=== PATIENT | female | born 1995 ===

== ENCOUNTER 2017-12-10 16:37 | Inpatient (IN) | payer BC, OTHER ==
[~2017-12-10] VITALS: Ht 149.9 cm; Wt 45.4 kg
[2017-12-10 19:30] VITALS: BP 106/68
--- NOTE | 2017-12-10 19:30 | NUR ---
Pre-admission Pre-admission assessment performed in the intake department of [facility]. Pt is A&O and ambulatory with a steady gait, HR . She appears mildly intoxicated and answers questions appropriately. She is noted with pinpoint pupils. Vital signs are B/P 106/68, HR 79, RR 16, O2 sat 97%, T 98.1, pain 0/10. Pt reports that she has been using heroin 0.5grams per day and occasionally a Roxicodone tab over the past 2 weeks. Last used heroin 2 hours ago and last used Roxicodone yesterday. Pt is stable and [facility].
[2017-12-10 20:00] VITALS: BP 106/68
[2017-12-10 20:10] LABS: *AMPHETAMINE, URINE NEGATIVE (NEGATIVE); *BARBITURATE, URINE NEGATIVE (NEGATIVE); *CANNABINOID, URINE NEGATIVE (NEGATIVE); *COCCAINE, URINE NEGATIVE (NEGATIVE); *OPIATE, URINE POSITIVE (NEGATIVE); *PHENCYCLIDINE SCREEN,URINE NEGATIVE (NEGATIVE)
[2017-12-10] MEDS ORDERED: HYDROXYZINE PAMOATE 25 MG CAPSULE PO PRN (20:30)
[2017-12-10] MEDS ORDERED: MAG HYDROX/AL HYDROX/SIMETH 30 ML LIQUID UDC PO PRN (20:30)
[2017-12-10] MEDS ORDERED: ONDANSETRON 4 MG/2 ML VIAL IM PRN (20:30)
[2017-12-10] MEDS ORDERED: LORAZEPAM 1 MG TABLET PO PRN (20:30)
[2017-12-10] MEDS ORDERED: CLONIDINE HCL 0.1 MG TABLET PO PRN (20:30)
[2017-12-10] MEDS ORDERED: LOPERAMIDE HCL 2 MG CAPSULE PO PRN ×2 (20:30)
[2017-12-10] MEDS ORDERED: MAGNESIUM HYDROXIDE 30 ML LIQUID UDC PO PRN (20:30)
[2017-12-10] MEDS ORDERED: ACETAMINOPHEN 325 MG TABLET PO PRN (20:30)
[2017-12-10] MEDS ORDERED: BUPRENORPHINE HCL 2 MG TAB.SUBL SL PRN (20:30)
[2017-12-10] MEDS ORDERED: IBUPROFEN 400 MG TABLET PO PRN (20:30)
[2017-12-10 20:34] LABS: *URINE HCG, QUAL NEGATIVE (NEGATIVE)
[2017-12-10] MEDS ORDERED: DIVA-78 PO (20:38)
[2017-12-10] MEDS ORDERED: GABA-534 PO (20:38)
[2017-12-10 20:40] LABS: BASOPHILS % (AUTO) 0.5 % (0.0-2.0); EOSINOPHILS # (AUTO) 0.4 K/uL (0.0-0.7); EOSINOPHILS % (AUTO) 6.2 % (0.0-7.0); HEMATOCRIT 40.1 % (31.2-41.9); HEMOGLOBIN 13.5 g/dL (10.9-14.3); LYMPHOCYTES % (AUTO) 29.9 % (20.5-51.5); MEAN CORPUSCULAR HEMOGLOBIN 30.3 uug (24.7-32.8); MEAN CORPUSCULAR HGB CONC 34 g/dL (32.3-35.6); MONOCYTES # (AUTO) 0.4 K/uL (2.0-10.0); MONOCYTES % (AUTO) 6.6 % (0.0-11.0); NEUTROPHILS # (AUTO) 3.8 K/uL (1.8-8.9); NEUTROPHILS % (AUTO) 56.8 % (38.5-71.5); PLATELET COUNT (AUTO) 247 K/uL (179-408); RED BLOOD CELL COUNT(AUTO) 4.45 MIL/uL (3.63-4.92); WHITE BLOOD COUNT (AUTO) 6.6 K/uL (3.8-11.8)
[2017-12-10 20:44] LABS: ETHANOL < 3 MG/DL (0-0)
[2017-12-10 20:48] LABS: ALANINE AMINOTRANSFERASE 40 U/L (14-59); ALKALINE PHOSPHATASE 45 U/L (50-136); ASPARTATE AMINOTRANSFERASE 22 U/L (15-37); BILIRUBIN,TOTAL 0.4 mg/dL (0.2-1.0); CARBON DIOXIDE 25 mmol/L (21-32); CHLORIDE 101 mmol/L (98-107); CREATININE 0.7 mg/dL (0.6-1.3); GLUCOSE 75 mg/dL (74-106); POTASSIUM 3.5 mmol/L (3.5-5.1); TOTAL PROTEIN, SERUM 8.4 g/dL (6.4-8.2); UREA NITROGEN, BLOOD 8 mg/dL (7-18)
[2017-12-10 20:57] LABS: THYROID STIMULATING HORMONE 1.453 mIU/mL (0.358-3.740)
--- NOTE | 2017-12-10 21:30 | NUR ---
Admission Pt is a 22 yo female who arrived on the [facility] unit at 1952 on 12/10/17 for medically supervised opiate withdrawal. She admits to smoking heroin and occasionally taking Roxicodone tabs. She is A&O and ambulatory with a steady gait. The appears mildly intoxicated and answers questions appropriately with clear speech. She is noted with pinpoint pupils during admission assessment. Her vital signs in intake were: B/P 106/68, HR 79, RR 16, O2 sat 97%, T 98.1, pain 0/10. Pt is 411 and weighs 100lb. PMH includes Tachycardia, Chlamydia, Appendectomy, Bipolar I, and anxiety. Lung sounds clear, brisk capillary refill, PERRLA, bowel sounds present, abdomen soft and non-tender, skin is intact. Pt is concerned that she has a UTI and unspecified STDs. Her LMP started 12/08/17 and last BM was also 12/08/17. Pt reports h/o 5150s x5 with the last one being in 2014 due to accidental overdose. 2 of the 5150s were for suicidal ideation and one was for suicide attempt. She had another suicide attempt in 2016 where she took 30 Trazodone tabs. Pt was not placed on a 5150 at this time. She denies current SI/HI. She has a h/o BZD abuse and experienced blackouts during that time. She denies seizure history. History of Use 1) Heroin 0.5grams/day via oral inhalation x 2 weeks. She first used heroin 5 years ago. Last used 0.5 grams at 1730 today. 2) Roxicodone 5 tabs of 30mg via oral inhalation over the past 2 weeks. Last used 1/2 tab on 12/09/17. She first used Roxicodone 3 years ago. Treatment History 1) [facility] 2015 for Heroin withdrawal. Pt was also using Methamphetamine. 2) A detox facility in [place] in 2015 for Heroin withdrawal 3) [facility] 2014 for BZD withdrawal. 4) [facility] 2012 for Heroin withdrawal. Pt was also using Methamphetamine. 5) [facility] 2012 Prior to relapsing, the patient had 16 months of sobriety. She is planning on attending a 30 day residential treatment program upon discharge from [facility]. She currently lives in a sober living. She decided to come to treatment today because I couldnt stop and I know how I get. I need to physically be away from it. Symptoms when she does not use include fever, legs are on fire, constipated, like I have the flu, everything hurts even things I didnt know could hurt. She explains that in the past her substance abuse has caused me to lose my job, lose my boyfriend, and disappoint my family. She and her boyfriend were sober together. Her most recent relapse happened when her boyfriend drank alcohol and used heroin the next day. When she went to his house she states I wasnt strong enough to not do it. Pt is expressing feelings of guilt and remorse. She feels it is necessary to go to residential treatment after so that she can be in a controlled environment. Her family is supportive although there is a h/o ETOH abuse with her father . COWS not assessed on admission as pt is mildly intoxicated. She is not experiencing s/s of withdrawal. She does not have a primary care physician. Her Psychiatrist is Dr. Vishal Young in [facility]. Dr. Simental aware of pts admission with orders receive. She was educated regarding plan of care, use of the call light, and all questions answered. Safety measures in place.
[2017-12-10 21:45] LABS: *BILIRUBIN,URIN 1+ (NEGATIVE); *BLOOD, URINE 2+ (NEGATIVE); *CLARITY,URINE CLEAR (CLEAR); *COLOR,URINE YELLOW (YELLOW); *KETONES,URINE 3+ (NEGATIVE); *PROTEIN,URINE NEGATIVE (NEGATIVE); *UROBILINOGEN,URINE 0.2 E.U./dl (NORMAL); LEUKOCYTE ESTERASE ,URINE NEGATIVE (NEGATIVE); NITRITE, URINE NEGATIVE (NEGATIVE); PH,URINE 6.5 (5.0-8.0); UGLUCOSE NEGATIVE (NEGATIVE)
[2017-12-10 21:46] LABS: BACTERIA,URINE FEW /HPF (NONE SEEN); SQUAMOUS EPITHELIAL CELL,UR FEW /HPF (NONE SEEN)
[2017-12-10] MEDS: diphenhydrAMINE 50 MG CAPSULE PO PRN (21:46)
--- NOTE | 2017-12-10 21:47 | NUR ---
PRN Benadryl Pt reports inability to sleep. PRN Benadryl administered.
--- NOTE | 2017-12-10 22:15 | NUR ---
Resumed care Patient was endorsed by FRANCISCA Guerra. Patient in the room. No c/o at this time. Safety measures in place. Call light in reach. Will continue to monitor.
[2017-12-11] VITALS: BP 95/71
--- NOTE | 2017-12-11 | NUR ---
COWS deferred Patient lying in bed with eyes closed. Respiration even and unlabored. Will continue to monitor
[2017-12-11 04:00] VITALS: BP 107/75
--- NOTE | 2017-12-11 04:00 | NUR ---
COWS deferred Patient lying in bed with eyes closed. Respiration even and unlabored. Will continue to monitor
--- NOTE | 2017-12-11 05:30 | NUR ---
COWS assessment Patient awake. Patient presents with anxiety, restless and intermittent sweating. COWS 5.
--- NOTE | 2017-12-11 07:20 | NUR ---
End of shift note Patient slept 6 hours. Fluid intake 500 ml. Voided x2. No BM. Patient was given PRN Benadryl. Last COWS 5. Safety measures in place. Call light within reach. Will continue to monitor.
--- NOTE | 2017-12-11 07:45 | NUR ---
START OF SHIFT Pt is a 22 yr old female, admitted on 12/10/17 for Opiate withdrawal and is on Subutex PRN for s/s of w/d. Received report from lens marker nurse. Pt received Benadryl PRN for sleep. Medication was effective and slept for 6 hrs. Last COWS score was 5. Pt remains in bed sleeping with respirations even and unlabored. skin is intact, warm and moist to touch. Pt's room is noted disheveled with dirty clothes on the floor and empty bottles of water on the floor. Safety precautions observed. Call light is within reach. Will continue to monitor.
[2017-12-11 08:11] VITALS: BP 86/54
[2017-12-11] MEDS ORDERED: TUBERCULIN,PURIF.PROT.DERIV. 5 TU/0.1 ML TEST ID ONE (09:00)
--- NOTE | 2017-12-11 09:00 | NUR ---
COWS ASSESSMENT Pt is c/o anxiety and muscle aches on BLE 07/11. Pt was observed yawning x1. COWS score was 5. Pt was encouraged to attend group therapy during the day. Will continue to monitor.
[2017-12-11] MEDS: DOCUSATE SODIUM 250 MG CAPSULE PO SCH (09:19)
[2017-12-11] MEDS: MULTIVITAMINS,THERAPEUTIC TABLET PO SCH (09:19)
[2017-12-11] MEDS ORDERED: 5 DAY TAPER BUPRENORPHINE -SERENITY PROTOCOL SL PRN (11:45)
[2017-12-11 12:00] VITALS: BP 97/56
[2017-12-11] MEDS: BUPRENORPHINE HCL 2 MG TAB.SUBL SL SCH ×3 (13:00→21:48)
[2017-12-11] MEDS: METHOCARBAMOL 750 MG TABLET PO PRN (13:25)
--- NOTE | 2017-12-11 13:32 | NUR ---
MEDICATION HELD/PRN GIVEN Subutex 4MG SL as scheduled at 1300 due to COWS score was <8. COWS score was 6 for anxiety, sweats and muscle aches. Pt was noted resting in bed. Skin is clammy to touch. BP is 97/56. Pt was given Robaxin 750mg PO PRN and Motrin 400mg PO PRN was given for muscle aches. Encouraged increase fluid intake. Will continue to monitor.
--- NOTE | 2017-12-11 14:32 | NUR ---
PRN RE-ASSESSMENT Motrin PRN and Robaxin PRN was effective. Pt denies any pain at this time. Encouraged increase fluid intake. Will continue to monitor.
--- NOTE | 2017-12-11 14:39 | NUR ---
Therapist prompted client to attend group therapy.
[2017-12-11 16:00] VITALS: BP 102/54
[2017-12-11] MEDS: GABAPENTIN 300 MG CAPSULE PO SCH (17:55)
--- NOTE | 2017-12-11 19:07 | NUR ---
END OF SHIFT Pt is a 22 yr old female, AA&Ox4. Pt was admitted on 12/10/17 for Opiate withdrawal and started a 5 day Subutex taper as ordered. Subutex 4mg SL as scheduled at 1300 was held due to low COWS score of 6. Pt was c/o muscle aches and sweats. Pt was given Robaxin 750mg PO PRN and Motrin 400mg PO PRN as ordered. Pts appearance is disheveled and room is noted with dirty clothes on the floor and multiple food wrappers on bedside table. Last COWS score was 8 at 1600. Pt was encouraged to attending group therapy and to drink plenty of fluids for hydration. Safety precautions observed. Endorsed to maintenance supervisor 2nd shift nurse to collect urine for UA.
--- NOTE | 2017-12-11 19:30 | NUR ---
Start of shift Patient is a 22 year old female admitted on 12/10/[address] [facility] for medically supervised Opiate withdrawal. Patient is on a 5 day Subutex taper. Patients last COWS was 8. Per endorsement patient had PRN Robaxin and Motrin. Patient has UA pending and patient will notify when she needs to go void. Upon rounds was noted in room with tv off, reviewed 2100 medication and she requested PRN Benadryl for sleep. Patient is on Fall precautions. Respirations are even and unlabored. Safety measures in place, bed locked in low position, side rails up x2, and call light within reach. Will continue to monitor.
[2017-12-11 20:00] VITALS: BP 135/86
--- NOTE | 2017-12-11 20:00 | NUR ---
COWS Assessment Patient is presenting with s/s of withdrawal as follow: anxiety, restless, body aches, and chills. Patients COWS is 8. Respirations are even and unlabored. Safety measures in place. Will continue to monitor.
[2017-12-11] MEDS ORDERED: DIVALPROEX ER 500 MG TAB.SR.24H PO SCH (21:00)
[2017-12-11 21:37] LABS: *BILIRUBIN,URIN NEGATIVE (NEGATIVE); *BLOOD, URINE NEGATIVE (NEGATIVE); *CLARITY,URINE SLIGHTLY CLOUDY (CLEAR); *COLOR,URINE YELLOW (YELLOW); *KETONES,URINE TRACE (NEGATIVE); *PROTEIN,URINE NEGATIVE (NEGATIVE); *UROBILINOGEN,URINE 0.2 E.U./dl (NORMAL); NITRITE, URINE NEGATIVE (NEGATIVE); UGLUCOSE NEGATIVE (NEGATIVE)
[2017-12-11] MEDS: DIVALPROEX ER 250 MG TAB.SR.24H PO SCH (21:48)
[2017-12-11] MEDS: diphenhydrAMINE 50 MG CAPSULE PO PRN (21:48)
[2017-12-11 21:55] LABS: LEUKOCYTE ESTERASE ,URINE TRACE (NEGATIVE)
[2017-12-11 21:58] LABS: MUCUS,URINE MANY /LPF (0-FEW); SQUAMOUS EPITHELIAL CELL,UR FEW /HPF (NONE SEEN); URINE AMORPHOUS PHOSPHATES FEW /HPF
--- NOTE | 2017-12-11 22:00 | NUR ---
PRN Benadryl, Milk of Magnesium, Zofran Patient is presenting with difficulty sleeping, constipation, and nausea. Administered PRN Benadryl, Milk of Magnesium, Zofran and patient tolerated well. Respirations are even and unlabored. Safety measures in place. Will continue to monitor.
[2017-12-11] MEDS: ONDANSETRON ODT 4 MG TAB.RAPDIS SL PRN (22:32)
--- NOTE | 2017-12-11 23:00 | NUR ---
PRN Benadryl, Milk of Magnesium, Zofran Reassessment Patient is noted in bed lying with eyes closed, breathing even and unlabored. Medication noted to be effect, patient is not complaining of nausea. Constipation will be monitor. Safety measures in place. Will continue to monitor.
[2017-12-12] VITALS: BP 118/79
--- NOTE | 2017-12-12 | NUR ---
COWS Assessment Patient is presenting with s/s of withdrawal as follow: anxiety, body aches, and chills. Patients COWS is 9. Respirations are even and unlabored. Safety measures in place. Will continue to monitor.
[2017-12-12 04:00] VITALS: BP 102/69
--- NOTE | 2017-12-12 04:00 | NUR ---
COWS Deferred Patient noted in bed lying with eyes closed, breathing even and unlabored. Per protocol COWS is to be assess while patient is awake. Safety measures in place. Will continue to monitor.
[2017-12-12 04:09] LABS: HEPATITIS B SURFACE AG Negative (Negative)
--- NOTE | 2017-12-12 07:30 | NUR ---
End of shift Patient is a 22 year old female admitted on 12/10/2017 here at [facility] for medically supervised Opiate withdrawal. Patient is on a 5 day Subutex taper. Patients last COWS was 9. Patient had PRN Benadryl, Milk of Magnesium, and Zofran. Patient is on Fall precautions. Patient slept for 8 hours and had a total intake of 855 ml. Patient voided x2 and had no bowel movements during this shift. Respirations are even and unlabored. Safety measures in place, bed locked in low position, side rails up x2, and call light within reach. Will endorse to day shift.
--- NOTE | 2017-12-12 07:47 | NUR ---
BEGINNING OF SHIFT Patient endorsement report received from material handler 2nd shift nurse, all pertinent information was discussed. Per material handler 2nd shift patient received PRN: Benadryl, MOM, and Zofran. Patient with last COW score of: 9. Slept for 8 hours. Patient with admitting Dx: opiate withdrawal, scheduled to begin day 2 of 5 day Subutex taper. Safety measures are in place. Call light with in reach, received patient awake, alert and oriented x4, educated regarding plan of care for the day and medication regimen with good verbal understanding. Safety measures are in place. Will continue to monitor.
[2017-12-12 08:13] VITALS: BP 157/75
[2017-12-12] MEDS: GABAPENTIN 300 MG CAPSULE PO SCH ×3 (08:24→16:27)
[2017-12-12] MEDS: MULTIVITAMINS,THERAPEUTIC TABLET PO SCH (08:24)
[2017-12-12] MEDS: DOCUSATE SODIUM 250 MG CAPSULE PO SCH (08:24)
[2017-12-12] MEDS: BUPRENORPHINE HCL 2 MG TAB.SUBL SL SCH ×3 (08:25→23:15)
--- NOTE | 2017-12-12 08:42 | NUR ---
COW ASSESSMENT: patient was noted exhibiting the following s/sx of withdrawal: flushed, chills, difficulty sitting still, enlarged pupils, arthralgias, myalgias, abdominal cramps, gooseflesh, increase anxiety, agitation, and generalized discomfort, patient with current COW score of: 13. will continue to monitor.
[2017-12-12 13:10] VITALS: BP 104/77
--- NOTE | 2017-12-12 13:20 | NUR ---
Therapist prompted client to attend all group therapy sessions.
--- NOTE | 2017-12-12 13:30 | NUR ---
COW ASSESSMENT: Patient was noted exhibiting the following s/sx of withdrawal: chills, difficulty sitting still, enlarged pupils, arthralgias, myalgias, abdominal cramps, gooseflesh, increase anxiety, agitation, elevated heart rate, and generalized discomfort, patient with current COW score of: 13. will continue to monitor.
[2017-12-12] MEDS: ONDANSETRON ODT 4 MG TAB.RAPDIS SL PRN (16:28)
--- NOTE | 2017-12-12 16:28 | NUR ---
PRN ZOFRAN Patient c/o increase nausea, no episodes of vomiting noted. Patient administered Zofran as ordered, will monitor effectiveness of medication.
--- NOTE | 2017-12-12 16:45 | NUR ---
COW ASSESSMENT: patient was noted exhibiting the following s/sx of withdrawal: flushed, chills, difficulty sitting still, enlarged pupils, arthralgias, myalgias, abdominal cramps, gooseflesh, increase anxiety, agitation,nausea, and elevated heart rate, and generalized discomfort, patient with current COW score of: 13. will continue to monitor. Safety measures in place.
[2017-12-12 16:55] VITALS: BP 100/64
--- NOTE | 2017-12-12 16:58 | NUR ---
ZOFRAN REASSESSMENT Patient reports medication effective, denies any nausea, will continue to monitor.
--- NOTE | 2017-12-12 18:58 | NUR ---
END OF SHIFT Patient alert and oriented x4, continues under close observation, patient with admitting Dx: opiate withdrawal. Patient continues with ongoing 5 day Subutex taper as ordered. Patient noted with avoidant eye contact, soft speech, racing thoughts, with sad/worried facial expression. Flat affect, and anxious/depressed mood. Noted fidgety, withdrawn, and guarded. Appears disheveled and unkept, encouraged patient maintenance of personal space and self grooming. During shift MD with new orders to repeat urinalysis. Patient reports mild discomfort upon voiding, no hematuria noted. Encouraged patient to increase PO fluid intake as tolerated. Patient afebrile during shift. Continues under close observation, patient was noted exhibiting the following s/sx of withdrawal: flushed, chills, difficulty sitting still, enlarged pupils, arthralgias, myalgias, abdominal cramps, gooseflesh, increase anxiety, agitation, and elevated heart rate, and nausea, patient with last COW score of: 13. Encouraged to attend group therapies/sessions to learn new coping skills to prevent relapse. Denies SI/HI. Safety measures are in place. Call light kept with in reach, safety measures are in place. Patient endorsed to evening or night nurse supervisor nurse, all pertinent information was discussed.
--- NOTE | 2017-12-12 19:30 | NUR ---
Start of shift Patient is a 22 year old female admitted on 12/10/2017 here at [facility] for medically supervised Opiate withdrawal. Patient is on a 5 day Subutex taper. Patients last COWS was 13. Patient is on Fall precautions. Per endorsement patient had PRN Zofran. Patient has not had an bowel movement during day shift, a onetime order of magnesium citrate was ordered for 1999. Upon rounds patient was noted in room, she seems depressed and worried. Respirations are even and unlabored. Safety measures in place, bed locked in low position, side rails up x2, and call light within reach. Will continue to monitor.
[2017-12-12 20:00] VITALS: BP 100/61
[2017-12-12] MEDS ORDERED: MAGNESIUM CITRATE 296 ML BOTTLE PO ONE (20:00)
--- NOTE | 2017-12-12 20:00 | NUR ---
COWS Assessment Patient is presenting with s/s and of withdrawal as follow: mild body aches, anxiety, nausea, stuffy nose and chills. Patients COWS is 11. Respirations are even and unlabored. Safety measures in place, and will continue to monitor.
--- NOTE | 2017-12-12 20:34 | NUR ---
One time dose Citrate of Magnesium 296 ml Patient was given a onetime dose of Citrate of Magnesium 296 ml, medication was entered manually because barcode was unable to scan, witnessed by charge nurse. Patient tolerated medication well, and will continue to monitor. Respirations are even to unlabored.
[2017-12-12] MEDS: DIVALPROEX ER 250 MG TAB.SR.24H PO SCH (23:13)
--- NOTE | 2017-12-12 23:13 | NUR ---
Late Medication administration/Incident report Patient was asking to take medication late because she was afraid it would induced nausea. Schedule Depakote and Subutex was administered at 2313. Patient was monitored during Subutex administration and when asked a minute after administration, medication was not dissolve and not visible. One pill was being cheeked in between the teeth and it was addressed to patient and she went ahead and put the pill SL, patient was sitting at the edge of the bed, patient immediately got up and said "I need to use the restroom"; and went inside the restroom and closed the door. I opened the door and inform patient she cannot do that and I had to monitor her, patient stated "I need to use the restroom". I left the restroom door open and monitor patient closely and monitor for cheeking. Patient was noted with toilet paper wrapped around her hand which she flushed down the toilet. Patient was acting very suspicious. Charge nurse and WATCH MANUFACTURING SUPERVISOR fish bait processing supervisor were notified. Room search and body search conducted and nothing was found and patient was educated regarding proper medication administration.
[2017-12-13] VITALS: BP 105/66
[2017-12-13 01:07] LABS: *GC NAA Negative (Negative); *TRIC.VAG. NAA Negative (Negative)
[2017-12-13 04:00] VITALS: BP 108/63
--- NOTE | 2017-12-13 07:26 | NUR ---
End of shift Patient is a 22 year old female admitted on 12/10/2017 here at [facility] for medically supervised Opiate withdrawal. Patient is on a 5 day Subutex taper. Patients last COWS was 11. Patient is on Fall precautions. Patient did not have any PRN medications during this shift. Patient slept for 9 hours and had a total intake of 740 ml. Patient voided x3 and had not bowel movements. During night medications patient was suspected of cheeking medication and will endorse to day shift. Respirations are even and unlabored. Safety measures in place, bed locked in low position, side rails up x2, and call light within reach. Will endorse to day shift.
--- NOTE | 2017-12-13 07:37 | NUR ---
BEGINNING OF SHIFT Received patient awake, alert and oriented x4, educated regarding plan of care for the day and medication regimen with good verbal understanding. Patient endorsement report received from shift stacker nurse, all pertinent information was discussed. Per shift stacker patient received no PRNs, received one time of magnesium citrate, continues under observation. Patient with last COW score of: 11. Slept for 9 hours. Scheduled to begin day 3 of 5 day Subutex taper. Safety measures are in place. Call light with in reach, Safety measures are in place. Will continue to monitor.
[2017-12-13 08:16] VITALS: BP 92/68
--- NOTE | 2017-12-13 08:45 | NUR ---
COW ASSESSMENT Exhibiting the following s/sx of withdrawal: flushed, difficulty sitting still, enlarged pupils, moist eyes, arthralgias, myalgias, abdominal cramps, yawning, gooseflesh, increase anxiety, agitation.Patient with current COW score of: 10.
[2017-12-13] MEDS: MULTIVITAMINS,THERAPEUTIC TABLET PO SCH (08:47)
[2017-12-13] MEDS: DOCUSATE SODIUM 250 MG CAPSULE PO SCH (08:47)
[2017-12-13] MEDS: GABAPENTIN 300 MG CAPSULE PO SCH ×3 (08:47→16:49)
[2017-12-13] MEDS ORDERED: BUPRENORPHINE HCL 2 MG TAB.SUBL SL SCH (09:00)
--- NOTE | 2017-12-13 10:17 | NUR ---
Therapist prompted client to attend group therapy.
--- NOTE | 2017-12-13 13:10 | NUR ---
COW ASSESSMENT Presenting with the following s/sx of withdrawal: chills, difficulty sitting still, enlarged pupils, moist eyes, arthralgias, myalgias, abdominal cramps, yawning, gooseflesh, increase anxiety, agitation, and elevated heart rate. Patient with current COW score of: 10.
[2017-12-13 13:14] VITALS: BP 135/78
[2017-12-13] MEDS: BUPRENORPHINE HCL 2 MG TAB.SUBL SL SCH ×2 (14:24→20:46)
[2017-12-13 16:56] VITALS: BP 94/62
--- NOTE | 2017-12-13 17:10 | NUR ---
COW ASSESSMENT Patient noted with: flushed face, chills, difficulty sitting still, enlarged pupils, moist eyes, arthralgias, myalgias, abdominal cramps, yawning, gooseflesh, increase anxiety, agitation, and elevated heart rate. Patient with last COW score of: 10.
--- NOTE | 2017-12-13 19:01 | NUR ---
END OF SHIFT Continues under close observation, patient with ongoing Subutex taper as ordered, no episodes of behavior or trying to cheek medication were noted during shift. was noted exhibiting the following s/sx of withdrawal: flushed, chills, difficulty sitting still, enlarged pupils, moist eyes, arthralgias, myalgias, abdominal cramps, yawning, gooseflesh, increase anxiety, agitation, and elevated heart rate. Patient with last COW score of: 10. Received no PRN medications during shift nurse manager Presented with: avoidant eye contact and soft speech. Has a sad/worried facial expression. Flat affect, and anxious/depressed mood. Noted withdrawn, and guarded, Noted isolative, preferred to stay in room despite much encouragement, patient was encouraged to socialize with peers and attend group therapies/sessions to learn new coping skills to prevent relapse. Appears disheveled and unkempt, has clothes thrown on floor and empty candy wrappers/water bottles in room, encouraged patient maintenance of personal space and self grooming. Offered linen change and refused. During shift no hematuria, no c/o dysuria were noted. Encouraged patient to increase PO fluid intake as tolerated. Patient afebrile during shift. Encouraged to attend group therapies/sessions to learn new coping skills to prevent relapse. Denies SI/HI. Safety measures are in place. Call light kept with in reach, safety measures are in place. Patient endorsed to shift nurse manager nurse, all pertinent information was discussed.
--- NOTE | 2017-12-13 19:48 | NUR ---
START OF SHIFT NOTE Rcvd report from outgoing nurse. Pt is a 22 y/o female A/O to person, place, time, and purpose. Pt was admitted for medically supervised withdrawal from Opiates. Pt is on day 3 of a 5 day Subutex taper. Pt has been presenting w/ anxiety, restlessness, body aches, headaches, sweats, depressed and withdrawn mood, flat affect, and guarded. No PRN medication was given to pt during the previous shift. Last COWS 10 @ 1600. Call light is within reach. Pt will continue to be monitored and needs met.
[2017-12-13 20:05] VITALS: BP 122/74
--- NOTE | 2017-12-13 20:06 | NUR ---
COWS ASSESSMENT COWS 10. . Pt has been presenting w/ anxiety, restlessness, body aches, headaches, sweats, depressed and withdrawn mood, flat affect, and guarded. V/S: T:97.6, P:97, RR:15, SPO2:100, BP:122/74.
[2017-12-13] MEDS: METHOCARBAMOL 750 MG TABLET PO PRN (20:45)
--- NOTE | 2017-12-13 20:45 | NUR ---
PRN ROBAXIN AND VISTARIL ADMINISTRATION Robaxin 750mg and Vistaril 25mg given for anxiety and body aches/pain. Pt states feeling anxious and 6/10 generalized body aches. Will reassess pt in 1 hr.
[2017-12-13] MEDS: DIVALPROEX ER 250 MG TAB.SR.24H PO SCH (20:46)
--- NOTE | 2017-12-13 21:45 | NUR ---
PRN ROBAXIN AND VISTARIL REASSESSMENT Pt states relief from body aches down to a 1/10 and from anxiety. Pt just finished getting ready for bed and states will try and fall asleep now.
[2017-12-13] MEDS: TRAZODONE 50 MG TABLET PO PRN (22:37)
--- NOTE | 2017-12-13 22:37 | NUR ---
PRN TRAZODONE ADMINISTRATION Trazodone 50mg given for sleep. Pt c/o insomnia. Will reassess pt in 1 hr.
--- NOTE | 2017-12-13 23:37 | NUR ---
PRN TRAZODONE REASSESSMENT Pt is in bed w/ her eyes closed. Pt's respirations are unlabored and even.
--- NOTE | 2017-12-14 04:16 | NUR ---
COWS DEFERRED. V/S REFUSED Pt is in bed w/ her eyes closed. Pt's respirations are unlabored even.
--- NOTE | 2017-12-14 07:22 | NUR ---
END OF SHIFT NOTE Endorsed pt to oncoming nurse. Pt is a 22 y/o female A/O to person, place, time, and purpose. Pt was admitted for medically supervised withdrawal from Opiates. Pt completed 3 of a 5 day Subutex taper. Pt continues presenting w/ anxiety, restlessness, body aches, headaches, sweats, depressed and withdrawn mood, flat affect, and guarded. Pt denies any S/I or H/I. PRN Robaxin 750mg for body achwes, Vistaril 25mg for anxiety, and Trazodone 50mg for sleep were given and noted effective. Pts fluid intake was 1000ml and she slept for 7hrs. Last COWS 10 @ 2000. Call light is within reach.
--- NOTE | 2017-12-14 07:39 | NUR ---
BEGINNING OF SHIFT Patient continues with ongoing Subutex taper, is scheduled to begin day 4 of 5 Subutex taper. Patient is awake, alert and oriented x4, educated regarding plan of care for the day and medication regimen with good verbal understanding. Per security shift manager patient received PRN: Robaxin, Vistaril and Trazodone. Medications were effective as per security shift manager. Patient with last COW score of: 10. Slept for 7 hours. Safety measures are in place. Call light with in reach, Safety measures are in place. Will continue to monitor.
[2017-12-14 08:15] VITALS: BP 98/63
[2017-12-14] MEDS: BUPRENORPHINE HCL 2 MG TAB.SUBL SL SCH ×3 (08:17→20:14)
[2017-12-14] MEDS: MULTIVITAMINS,THERAPEUTIC TABLET PO SCH (08:17)
[2017-12-14] MEDS: DOCUSATE SODIUM 250 MG CAPSULE PO SCH (08:17)
[2017-12-14] MEDS: GABAPENTIN 300 MG CAPSULE PO SCH ×3 (08:17→16:33)
--- NOTE | 2017-12-14 08:30 | NUR ---
COW ASSESSMENT Patient was noted exhibiting the following s/sx of withdrawal during shift: chills, difficulty sitting still, generalized discomfort, emotional volatility, enlarged pupils, mild arthralgias/myalgia, moist eyes, tremors that can be felt, yawning, irritability, increase anxiety and agitation. Patient with last COW score of: 9.
[2017-12-14] MEDS: METHOCARBAMOL 750 MG TABLET PO PRN (12:32)
--- NOTE | 2017-12-14 12:32 | NUR ---
PRN ROBAXIN Patient complained of myalgia, and muscle spasm, pain level 5/10, provided with non pharmacological interventions with no relief, administered robaxin as ordered, will monitor effectiveness of medication.
--- NOTE | 2017-12-14 13:10 | NUR ---
COW ASSESSMENT Patient was noted exhibiting the following s/sx of withdrawal during shift: chills, difficulty sitting still, generalized discomfort, emotional volatility, enlarged pupils, mild arthralgias/myalgia, moist eyes, tremors that can be felt, Elevated heart rate, irritability, increase anxiety and agitation. Patient with last COW score of: 9. Will continue to monitor.
--- NOTE | 2017-12-14 13:32 | NUR ---
ROBAXIN REASSESSMENT Patient reports medication effective, current pain level 0/10, will continue to monitor.
[2017-12-14 13:34] VITALS: BP 109/61
--- NOTE | 2017-12-14 16:30 | NUR ---
COW ASSESSMENT Continues to exhibit the following s/sx of withdrawal during shift: chills, difficulty sitting still, generalized discomfort, emotional volatility, enlarged pupils, mild arthralgias/myalgia, moist eyes, tremors that can be felt, Elevated heart rate, irritability, increase anxiety and agitation. Patient with last COW score of: 9. Will continue to monitor.
[2017-12-14 16:51] VITALS: BP 122/68
--- NOTE | 2017-12-14 17:00 | NUR ---
END OF SHIFT/ENDORSED CARE Patient continues under close observation, safety measures in place throughout shift, no behavior issues during shift, patient compliant with treatment plan and medication administration. Patient noted attending and participating in group therapies/sessions, denies SI/HI. Encouraged utilization of non pharmacological interventions as needed. Patient was noted exhibiting the following s/sx of withdrawal during shift: chills, difficulty sitting still, generalized discomfort, emotional volatility, enlarged pupils, mild arthralgias/myalgia, moist eyes, tremors that can be felt, yawning, irritability, increase anxiety and agitation. Patient with last COW score of: 9. Noted with fair appetite, encouraged increase in PO fluid intake as tolerated. Received no PRNs during shift. Patient with no c/o dysuria, or hematuria noted. Patient also noted with flat affect and depressed/anxious mood. Non pharmacological interventions provided as needed, along with calming reassurance as needed. Safety measures are in place. Patient endorsed to staff nurse, all pertinent information was discussed.
--- NOTE | 2017-12-14 17:01 | NUR ---
ENDORSEMENT Pt endorsed me. All information received. Assumed care.
--- NOTE | 2017-12-14 19:04 | NUR ---
END OF SHIFT Pt endorsed to nurse. Last cows=9@1600. All information given from assumed care.
--- NOTE | 2017-12-14 19:30 | NUR ---
Start of shift Patient is a 22 year old female admitted on 12/10/2017 here at [facility] for medically supervised Opiate withdrawal. Patient is on a 5 day Subutex taper. Patients last COWS was 9. Patient is on Fall precautions. Per endorsement patient had PRN Robaxin and patient had repeated UA exam during day shift. Upon rounds patient was noted in room. Patient understands plan of care. Patient appears withdrawn, depressed and disheveled. Respirations are even and unlabored. Safety measures in place, bed locked in low position, side rails up x2, and call light within reach. Will continue to monitor.
[2017-12-14 20:00] VITALS: BP 115/77
--- NOTE | 2017-12-14 20:00 | NUR ---
COWS Assessment Patient is presenting with s/s and of withdrawal as follow: tremors, mild body aches, anxiety, agitation, nausea, stuffy nose and chills. Patients COWS is 9. Respirations are even and unlabored. Safety measures in place, and will continue to monitor.
[2017-12-14] MEDS: DIVALPROEX ER 250 MG TAB.SR.24H PO SCH (20:14)
[2017-12-14] MEDS: TRAZODONE 50 MG TABLET PO PRN (20:14)
--- NOTE | 2017-12-14 20:14 | NUR ---
PRN Trazodone Patient is reporting difficulty falling asleep and administered PRN Trazodone. Patient tolerated medication well and will continue to monitor. Respirations are even and unlabored. Safety measures in place.
--- NOTE | 2017-12-14 21:14 | NUR ---
PRN Trazodone Reassessment Patient is noted lying in bed with eyes closed, breathing even and unlabored. Medication noted to be effective. Safety measures in place and will continue to monitor.
[2017-12-15] VITALS: BP 108/68
[2017-12-15 04:00] VITALS: BP 108/68
--- NOTE | 2017-12-15 07:04 | NUR ---
End of shift Patient is a 22 year old female admitted on 12/10/2017 here at [facility] for medically supervised Opiate withdrawal. Patient is on a 5 day Subutex taper. Patients last COWS was 9. Patient is on Fall precautions. Patient had PRN Trazodone during this shift. Patient slept for 8 hours and had a total intake of 1,597ml. Patient voided x4 and had no bowel movements during this shift. Patient took a bed bath before bed. Respirations are even and unlabored. Safety measures in place, bed locked in low position, side rails up x2, and call light within reach. Will continue to monitor.
--- NOTE | 2017-12-15 07:30 | NUR ---
START OF SHIFT Endorse rcvd from ongoing nurse, client is in bed, lying on her R side, sounds asleep, easy to arouse, RR 16 even, non-labored. PRN Trazodone 50mg PO for sleep, she slept 8 hrs. Last COWS 9 @ 1999. [place] precautions. Pending results for repeat urine culture, trace of leukocytes and increase WBC's. Pending results for urine culture for Chlamydia, Gonorrhea, and Trichomonas. Bed in lowest/locked position, side rails x 2 up. Call light within reach. Will continue to monitor.
[2017-12-15] MEDS ORDERED: BUPRENORPHINE HCL 2 MG TAB.SUBL SL SCH (09:00)
[2017-12-15 09:14] VITALS: BP 101/64
[2017-12-15] MEDS: GABAPENTIN 300 MG CAPSULE PO SCH ×3 (09:50→17:03)
[2017-12-15] MEDS: MULTIVITAMINS,THERAPEUTIC TABLET PO SCH (09:50)
[2017-12-15] MEDS: DOCUSATE SODIUM 250 MG CAPSULE PO SCH (09:50)
--- NOTE | 2017-12-15 09:50 | NUR ---
COWS 10 Client is sitting at the edge of bed, she appears disheveled, anxious, clammy skin, enlarged pupils,, yawning, and difficulty concentrating. Client reports abdominal cramping, agitation, anhedonia, anxiety, chills/cold, clammy skin, depression, difficulty thinking clearly, emotional volatility, and fatigue. Scheduled Subutex 2mg SL administered. Encourage client to participate in group therapy to learn skills to maintain sober. Call light within reach.
[2017-12-15 12:05] VITALS: BP 117/76
--- NOTE | 2017-12-15 12:55 | NUR ---
COWS 10 Client presents with anxiety, restlessness, agitation, tremors, fatigue, clammy skin, anhedonia, agitation, abdominal cramps, depression, difficulty thinking clearly, emotional volatility, and enlarged pupils. Schedule Gabapentin 300mg PO administered. Call light within reach.
[2017-12-15] MEDS ORDERED: METH-406 PO (13:10)
[2017-12-15 16:55] VITALS: BP 121/81
[2017-12-15] MEDS: METHOCARBAMOL 750 MG TABLET PO PRN (17:05)
--- NOTE | 2017-12-15 17:05 | NUR ---
COWS 8 & PRN Robaxin 750mg PO administered for myalgia on lower extremities 08/11. Client continues to present with anxiety, restlessness, agitation, clammy skin, anhedonia, agitation, abdominal cramps, depression, difficulty thinking clearly, emotional volatility, and enlarged pupils. Schedule Gabapentin 300mg PO administered. Call light within reach.
--- NOTE | 2017-12-15 18:05 | NUR ---
Reassess PRN Robaxin 750mg, client report relief from myalgia on lower extremities 0/10.
--- NOTE | 2017-12-15 19:14 | NUR ---
END OF SHIFT Endorse client to incoming nurse, client is a/o x 4, client continues to present with anxiety, restlessness, agitation, clammy skin, anhedonia, agitation, abdominal cramps, depression, difficulty thinking clearly, emotional volatility, and enlarged pupils. PRN administered and noted per protocol. Last COWS 8 @ 1700. Client is schedule for discharge to [facility] tomorrow am. Client completed 5 day Subutex taper. Adequate PO fluid intake 1850mL, void x 3, stool x2. Client consumes 50-75% of meals. [place] precautions. Call light within reach.
--- NOTE | 2017-12-15 19:43 | NUR ---
START OF SHIFT NOTE Rcvd report from outgoing nurse. Pt is a 22 y/o female A/O to person, place, time, and purpose. Pt was admitted for medically supervised withdrawal from Opiates. Pt completed a 5 day Subutex taper and will be discharged on 12/16. Pt has been presenting w/ anxiety, depressed and withdrawn mood, a flat affect, lethargy, sweats, and body aches. PRN Robaxin was given and noted effective by outgoing nurse. Last COWS 8 @ 1600. Call light is within reach. Pt will continue to be monitored and needs met.
[2017-12-15 20:03] VITALS: BP 99/66
--- NOTE | 2017-12-15 20:03 | NUR ---
COWS ASSESSMENT COWS 8. . Pt has been presenting w/ anxiety, depressed and withdrawn mood, a flat affect, lethargy, sweats, and body aches. V/S: T:98.9, P:98, RR:16, SPO2:100, BP:99/66.
[2017-12-15] MEDS: DIVALPROEX ER 250 MG TAB.SR.24H PO SCH (21:30)
[2017-12-15] MEDS: TRAZODONE 50 MG TABLET PO PRN (23:40)
--- NOTE | 2017-12-15 23:40 | NUR ---
PRN TRAZODONE ADMINISTRATION Trazodone 50mg given for sleep. Pt c/o of not being able to fall asleep. Will reassess pt in 1 hr.
--- NOTE | 2017-12-16 00:10 | NUR ---
COWS ASSESSMENT COWS 7. Pt has been presenting w/ anxiety, depressed and withdrawn mood, a flat affect, lethargY, and body aches. V/S refused.
--- NOTE | 2017-12-16 00:40 | NUR ---
PRN TRAZODONE REASSESSMENT Pt is in bed. Pt states that she is ready to fall asleep. Will continue to monitor pt.
--- NOTE | 2017-12-16 04:08 | NUR ---
COWS DEFERRED. V/S REFUSED Pt is in bed w/ her eyes closed. Pt's respirations are unlabored and even.
--- NOTE | 2017-12-16 07:05 | NUR ---
END OF SHIFT NOTE Endorsed pt to oncoming nurse. Pt is a 22 y/o female A/O to person, place, time, and purpose. Pt was admitted for medically supervised withdrawal from Opiates. Pt completed a 5 day Subutex taper and will be discharged on 12/16. Pt continues presenting w/ anxiety, depressed and withdrawn mood, a flat affect, lethargy, sweats, and body aches. Pt denies any S/I or H/I. PRN Trazodone was given for sleep, noted effective. Pts fluid intake was 500ml and she slept for 7hrs. Last COWS 7 @ 0000. Call light is within reach.
[2017-12-16 08:00] VITALS: BP 100/62
--- NOTE | 2017-12-16 08:02 | NUR ---
START OF SHIFT: Received Pt A/O X 4. She presents with anxious mood and congruent affect. She reports some anxiety about discharging this AM but expresses enthusiasm toward recovery. COWS 4. Subutex taper was completed. She states she is eating and sleeping better.Medicated as ordered Will continue with discharge process.
[2017-12-16] MEDS: DOCUSATE SODIUM 250 MG CAPSULE PO SCH (09:03)
[2017-12-16] MEDS: MULTIVITAMINS,THERAPEUTIC TABLET PO SCH (09:03)
[2017-12-16] MEDS: GABAPENTIN 300 MG CAPSULE PO SCH (09:03)
--- NOTE | 2017-12-16 10:00 | NUR ---
DISCHARGE: Pt is A/O X 4. She was medically cleared by MD for discharge. She states she is motivated to stay clean and enthusiastic toward recovery. Subutex taper was completed. Educated Pt on discharge instructions and medication. Belongings returned. [employer] escorted Pt to [facility] where she was transported by [facility] at 0941 to [facility].
== END 2017-12-16 09:41 | DRG 895 ==
LOC: SRC 19:02
PROVIDERS: ADMIT Family Medicine Addiction Medicine; ATTEND Family Medicine Addiction Medicine
PROC: HZ2ZZZZ Detoxification Services for Substance Abuse Treatment (ICD-10-PCS; principal; 2017-12-10)
PROC: HZ31ZZZ Individual Counseling for Substance Abuse Treatment, Behavioral (ICD-10-PCS; 2017-12-11)
PROC: HZ41ZZZ Group Counseling for Substance Abuse Treatment, Behavioral (ICD-10-PCS; 2017-12-12)
DX: F11.23 Opioid dependence with withdrawal (principal); F31.9 Bipolar disorder, unspecified; Z91.5 Personal history of self-harm; Z81.1 Family history of alcohol abuse and dependence; F41.1 Generalized anxiety disorder; A74.9 Chlamydial infection, unspecified; F17.200 Nicotine dependence, unspecified, uncomplicated; R30.0 Dysuria
CPT/HCPCS: 36415; 70030-TC; 80164; 80307; 80361; 83735; 84443; 84703; 85025; 86580; 86592; 86705; 86803; 87077; 87086; 87340; 87491; 87806; A4663; G0480; Q0162; Q0163